=== PATIENT | male | born 1980 | race American Indian/Alaskan Native ===

== ENCOUNTER 2019-09-07 17:05 | Emergency (ER) | payer SELFPAY ==
--- NOTE | 2019-09-07 17:12 | Event Note ---
ED Screening Note ED Screening Note: severe back pain after standing up, ibuprofen aleve icy hot no relief This initial assessment/diagnostic orders/clinical plan/treatment(s) is/are subject to change based on patients health status, clinical progression and re- assessment by fellow clinical providers in the ED. Further treatment and workup at subsequent clinical providers discretion. Patient/guardian urged not to elope from the ED as their condition may be serious if not clinically assessed and managed. Initial orders include: to treatment room
[2019-09-07 17:13] VITALS: BP 100/54
[2019-09-07] MEDS ORDERED: KETOROLAC 60 MG/2 ML INJ IM ONE (19:41)
[2019-09-07] MEDS ORDERED: dexAMETHasone 20 MG/5 ML VIAL IM ONE (19:41)
--- NOTE | 2019-09-07 19:46 | Emergency Department Report ---
ED Back Pain/Injury HPI - General Chief Complaint: Back Pain/Injury Stated Complaint: LOWER BACK PAIN Time Seen by Provider: 09/07/19 19:21 Source: EMS Mode of arrival: Wheelchair Limitations: No Limitations - History of Present Illness Initial Comments: This is a 39-year-old -[place] male who presents to the emergency room with low back pain since yesterday. Patient states he was playing a game on the floor with his son around 1830 and when he stood up he felt a pulling sensation to low back. He is applying icy hot and taking Advil with minimal changes in symptoms. Patient states he noticed swelling to bilateral L-spine this morning. States his massaged the area with little relief. Patient states he could barely walk so he called 911 and escorted via EMS to the ER. He denies urinary or bowel changes, radiating pain, numbness or tingling, or weakness. MD Complaint: back pain -: This evening Time: 18:30 Similar Symptoms Previously: No Place: home Radiation: none Severity: severe Severity scale (0 -10): 10 Quality: aching Consistency: constant Improves With: none Worsens With: movement, sitting upright, walking Context: turning/twisting Associated Symptoms: denies: numbness, difficulty urinating, incontinence, fever/chills Treatments Prior to Arrival: heat therapy, NSAIDS - Related Data Previous Rx's Medication Instructions Recorded Last Taken Type Methocarbamol [Robaxin] 500 mg PO TID PRN #15 tablet 09/07/19 Unknown Rx Naproxen [Naprosyn] 500 mg PO BID PRN #20 tablet 09/07/19 Unknown Rx methylPREDNISolone [Medrol 4MG 4 mg PO DAILY #1 tab.ds.pk 09/07/19 Unknown Rx DOSEPAK (21 tabs)] traMADoL [Ultram 50 MG tab] 50 mg PO Q6HR PRN #12 tablet 09/07/19 Unknown Rx Allergies Allergy/AdvReac Type Severity Reaction Status Date / Time No Known Allergies Allergy Unverified 09/07/19 17:06 ED Review of Systems ROS: Stated complaint: LOWER BACK PAIN Other details as noted in HPI Constitutional: denies: chills, fever Respiratory: denies: cough, shortness of breath, wheezing Cardiovascular: denies: chest pain, palpitations Gastrointestinal: denies: abdominal pain, nausea, diarrhea Musculoskeletal: back pain. denies: joint swelling, arthralgia Skin: denies: rash, lesions Neurological: denies: headache, weakness, paresthesias Psychiatric: denies: anxiety, depression ED Back Pain Physical Exam - Exam General: Vital signs noted. No distress. Alert and acting appropriately. Back/Abdomen: Yes Perilumbar Tenderness (Bilateral L-spine, negative midline tenderness, no step-off, no deformity), No Abdominal Tenderness, No Perithoracic Tenderness, No Sacroiliac Tenderness, No Flank Tenderness, No Straight Leg Raise Pain Neuro: Yes Normal Sensation, Yes Normal DTR's, Yes Normal Gait, No Motor Weakness ED Course Vital Signs 09/07/19 17:11 Temperature 98.5 F Pulse Rate 78 Respiratory 20 Rate Blood Pressure 100/54 O2 Sat by Pulse 97 Oximetry ED Medical Decision Making - Medical Decision Making This is a 39-year-old male who presents to the emergency room with low back pain for 1 day. Vitals stable and patient in no acute distress. Patient is nontoxic appearing and stable. Vitals are normal. Given history and exam there is low suspicion for spinal cord compression syndrome, vertebral malignancy, spinal fracture, or other acute spinal syndrome. No abdominal or midline spinal tenderness on exam for signs of trauma. Presentation os most likely non-joshua gent musculoskeletal cause. Imaging and labs are deferred at this time. Given steroids and analgesics. Monitored for 1 hour. Patient reports improvement of pain. Start steroids, analgesics, and muscle relaxants. Given strict return precautions. Patient discharged with prompt follow-up with primary care physician. Orthopedic surgeon referral given PRN. Critical care attestation.: If time is entered above; I have spent that time in minutes in the direct care of this critically ill patient, excluding procedure time. ED Disposition Clinical Impression: Lumbago without sciatica Qualifiers: Chronicity: acute Back pain laterality: bilateral Qualified Code(s): M54.5 - Low back pain Strain of lumbar paraspinal muscle Qualifiers: Encounter type: initial encounter Qualified Code(s): S39.012A - Strain of muscle, fascia and tendon of lower back, initial encounter Disposition: TO HOME OR SELFCARE Is pt being admited?: No Condition: Stable Instructions: Low Back Strain (ED), Lumbar Radiculopathy (ED) Additional Instructions: Rest Use ice or heat on affected area for 20 minutes and off for 2 hours. Take pain medication as needed for pain. Don't drive or operate heavy machinery while taking muscle relaxers because they may cause drowsiness. Follow up with Primary Care Provider in 2-3 days. Prescriptions: methylPREDNISolone [Medrol 4MG DOSEPAK (21 tabs)] 4 mg PO DAILY #1 tab.ds.pk Naproxen [Naprosyn] 500 mg PO BID PRN #20 tablet PRN Reason: Pain, Moderate (4-6) Methocarbamol [Robaxin] 500 mg PO TID PRN #15 tablet PRN Reason: Muscle Spasm traMADoL [Ultram 50 MG tab] 50 mg PO Q6HR PRN #12 tablet PRN Reason: Pain Referrals: [facility] [Outside] - 3-5 Days [facility] [Outside] - 3-5 Days [facility] [Outside] - 3-5 Days [facility] [Provider Group] - 3-5 Days Forms: Work/School Release Form(ED) Time of Disposition: 22:01
== END 2019-09-08 02:00 | disposition home or self-care (01) ==
LOC: ED 17:05
DX: S39.012A Strain of muscle, fascia and tendon of lower back, initial encounter (principal); M54.42 Lumbago with sciatica, left side; M54.41 Lumbago with sciatica, right side; X58.XXXA Exposure to other specified factors, initial encounter; Y93.89 Activity, other specified; Y92.89 Other specified places as the place of occurrence of the external cause; Y99.8 Other external cause status
CPT/HCPCS: 96372; 99283; J1100; J1885